=== PATIENT | female | born 1960 | race Caucasian/White ===

== ENCOUNTER 2019-05-31 17:04 | Emergency (ER) | payer SELFPAY ==
[~2019-05-31] VITALS: Ht 154.9 cm; Wt 88.0 kg
[2019-05-31 17:35] VITALS: BP_SYST 121
--- NOTE | 2019-05-31 17:44 | NUR ---
Patient triaged and placed in waiting room. VSS and patient appears in no acute distress at this time. Accompanied by son, sister, awaiting available bed, and MD notified of need for MSE.
--- NOTE | 2019-05-31 17:50 | NUR ---
Pt brought by self ,A&Ox4, pt presents to ER with R foot /ankle pain after she twisted foot yesterday, skin pink and warm,cap refill <3, VSS.
--- NOTE | 2019-05-31 18:54 | NUR ---
Dr Shirley at bedside examining patient
--- NOTE | 2019-05-31 19:07 | NUR ---
Report given to Anika PEARCE
[2019-05-31 19:30] VITALS: BP_SYST 118
--- NOTE | 2019-05-31 19:30 | NUR ---
Patient given written and verbal discharge instructions and verbalizes understanding. ER MD discussed with patient the results and treatment provided. Patient in stable condition. ID arm band removed. Rx of Ibuprofen given. Patient educated on pain management and to follow up with PMD. Pain Scale 0. Opportunity for questions provided and answered. Medication side effect fact sheet provided.
== END 2019-05-31 19:30 | disposition home or self-care (01) ==
LOC: SED 17:04
DX: S82.891A Other fracture of right lower leg, initial encounter for closed fracture (principal); W10.8XXA Fall (on) (from) other stairs and steps, initial encounter; Y93.89 Activity, other specified; Y92.89 Other specified places as the place of occurrence of the external cause; Y99.8 Other external cause status
CPT/HCPCS: 99283